=== PATIENT | female | born 2000 | race Caucasian/White ===

== ENCOUNTER 2023-01-03 09:23 | Observation (INO) | payer MEDICAID ==
[~2023-01-03] VITALS: Ht 154.9 cm; Wt 59.0 kg
[2023-01-03] MEDS ORDERED: FERR325T6 PO (10:25)
[2023-01-03] MEDS ORDERED: PNV1TABL76 PO (10:25)
[2023-01-03 12:50] LABS: CLARITY URINE CLOUDY (CLEAR); COLOR URINE DARK YELLOW (YELLOW); KETONES URINE TRACE (NEGATIVE); LEUKOCYTE ESTERASE URINE 1+ (NEGATIVE); NITRITE URINE NEGATIVE (NEGATIVE); OCCULT BLOOD URINE 2+ (NEGATIVE); PROTEIN URINE TRACE (NEGATIVE); SPECIFIC GRAVITY URINE 1.027 (1.005-1.030)
[2023-01-03] MEDS ORDERED: CEFAZOLIN 2000MG PREMIX 50 ML IV SCH (14:00)
[2023-01-03] MEDS ORDERED: LACTATED RINGERS 1,000 ML IV SCH (14:00)
[2023-01-03] MEDS ORDERED: CEFAZOLIN 2,000 MG in DEXT 5% WATER 100 ML IV SCH (14:30)
== END 2023-01-03 15:30 | disposition home or self-care (01) ==
LOC: 8 EST LDRP 09:23 → 8 EST A/PP 09:29
PROVIDERS: ADMIT Obstetrics & Gynecology; ATTEND Obstetrics & Gynecology
DX: O46.92 Antepartum hemorrhage, unspecified, second trimester (principal); O23.42 Unspecified infection of urinary tract in pregnancy, second trimester; O99.891 Other specified diseases and conditions complicating pregnancy; M54.9 Dorsalgia, unspecified; O60.02 Preterm labor without delivery, second trimester; Z3A.23 23 weeks gestation of pregnancy
CPT/HCPCS: 59025; 81003; 96361; 96365; G0378; J0690; J7060; 96360; 99281; J7120; G0379

== ENCOUNTER 2023-03-26 08:56 | Observation (INO) | payer MEDICAID ==
[~2023-03-26] VITALS: Ht 154.9 cm; Wt 68.0 kg
[~2023-03-26 08:56] MED LIST: FERR325T6 PO; PNV1TABL76 PO
[2023-03-26] MEDS: LACTATED RINGERS 1,000 ML IV SCH ×2 (10:39→11:45)
[2023-03-26 10:51] LABS: HEMOGLOBIN. 7.5 g/dL (12.0-16.0); MEAN CORPUSCULAR HEMOGLOBIN 21.4 pg (28.0-32.0); MEAN CORPUSCULAR VOLUME 68.5 fL (81.0-99.0); MEAN PLATELET VOLUME 9.7 fl (7.4-10.4); PLATELET 113 x1000/uL (130-400); RED BLOOD CELL COUNT 3.51 mill/uL (4.2-5.4); RED CELL DISTRIBUTION WIDTH 17.4 % (11.6-14.6)
[2023-03-26 11:00] LABS: CHLORIDE 111 mEq/L (98-107)
[2023-03-26 11:27] LABS: PLATELET ESTIMATE SLIGHTLY DECREASED
[2023-03-26] MEDS ORDERED: CITRIC ACID/SODIUM CITRATE SOLN 30ML UDC PO NR (14:30)
== END 2023-03-26 15:00 | disposition home or self-care (01) ==
LOC: 8 EST LDRP 08:56
PROVIDERS: ADMIT Obstetrics & Gynecology; ATTEND Obstetrics & Gynecology
DX: O26.893 Other specified pregnancy related conditions, third trimester (principal); R10.9 Unspecified abdominal pain; O21.2 Late vomiting of pregnancy; Z3A.35 35 weeks gestation of pregnancy
CPT/HCPCS: 59025; 96360; 96361; 80053; 85025; 36415; 76818; 76805; G0378 ×2

== ENCOUNTER 2025-09-02 18:46 | Emergency (ER) | payer MEDICAID ==
[~2025-09-02] VITALS: Ht 157.5 cm; Wt 61.0 kg
[2025-09-02 18:59] VITALS: TEMP 37; O2SAT 100
[2025-09-02 19:42] LABS: CLARITY URINE CLOUDY (CLEAR); COLOR URINE YELLOW (YELLOW); GLUCOSE URINE NEGATIVE (NEGATIVE); KETONES URINE NEGATIVE (NEGATIVE); LEUKOCYTE ESTERASE URINE 2+ (NEGATIVE); NITRITE URINE NEGATIVE (NEGATIVE); OCCULT BLOOD URINE NEGATIVE (NEGATIVE); PH URINE 7.0 (4.5-8.0); PROTEIN URINE NEGATIVE (NEGATIVE); SPECIFIC GRAVITY URINE 1.021 (1.005-1.030); UROBILINOGEN URINE 1.0 E.U./dL (0.2-1.0)
[2025-09-02] MEDS: ONDANSETRON 4MG ODT PO ONE (19:50)
[2025-09-02] MEDS: FAMOTIDINE 20MG TABLET PO ONE (19:50)
[2025-09-02] MEDS: MAGNESIUM/ALUMINUM HYDROXIDE/SIMETHICONE 30ML UDC PO ONE (19:50)
[2025-09-02] MEDS: SODIUM CHLORIDE 0.9% 1,000 ML IV ONE (20:08)
[2025-09-02] MEDS: PYRIDOXINE 100 MG/ML 1ML IV ONE (20:14)
[2025-09-02 20:18] LABS: BASOPHILS % 0.2 % (0.0-2.0); EOSINOPHILS % 0.4 % (0.0-5.0); HEMATOCRIT. 36.0 % (36.0-48.0); HEMOGLOBIN. 11.8 g/dL (12.0-16.0); LYMPHOCYTES % 14.4 % (20.0-50.0); MEAN PLATELET VOLUME 9.4 fl (7.4-10.4); MONOCYTES % 6.6 % (2.0-8.0); NEUTROPHILS % 78.4 % (40.0-76.0); PLATELET 193 x1000/uL (130-400); RED BLOOD CELL COUNT 4.56 mill/uL (4.2-5.4); RED CELL DISTRIBUTION WIDTH 18.4 % (11.6-14.6)
[2025-09-02 20:26] LABS: BACTERIA URINE 2+; SQUAMOUS EPITHELIAL CELL URINE 2+ /lpf (RARE/1+)
[2025-09-02 20:27] LABS: RBC URINE 0-2 /hpf (0-2)
[2025-09-02 20:30] LABS: CREATININE 0.5 mg/dL (0.6-1.0)
[2025-09-02 20:31] LABS: PROTEIN TOTAL 6.8 g/dL (6.0-8.3); UREA NITROGEN BLOOD < 5 mg/dL (9-23)
[2025-09-02 20:32] LABS: ASPARTATE AMINOTRANSFERASE 9 IU/L (<34)
[2025-09-02 20:33] LABS: BILIRUBIN DIRECT 0.1 mg/dL (<=3.0); BILIRUBIN TOTAL 0.5 mg/dL (0.1-1.0)
[2025-09-02] MEDS ORDERED: FAMO-135 MT (21:53)
[2025-09-02 22:17] VITALS: BP 110/55; PULSE 87; RESP 18; O2SAT 98
[2025-09-02] MEDS ORDERED: CEPH500C2 MT (22:41)
== END 2025-09-02 22:21 | disposition home or self-care (01) ==
LOC: ER 18:46
DX: O99.611 Diseases of the digestive system complicating pregnancy, first trimester (principal); O26.891 Other specified pregnancy related conditions, first trimester; R10.20 Pelvic and perineal pain unspecified side; Z3A.12 12 weeks gestation of pregnancy
CPT/HCPCS: 80076; 80048; 81003; 81025; 84702; 83690; 83735; 85025; 86850; 86900; 86901; 36415; 76705; 76801; 76817; 96374; 99285; Q0162; J3415; J7030; Z7610